=== PATIENT | male | born 1955 | race Hispanic/Latino ===

== ENCOUNTER 2017-07-22 08:10 | Outpatient (CLI) | payer MEDICARE ==
[2017-07-22] MEDS ORDERED: ISOVUE-370 76%-LOCM 1 ML ONE (13:10)
== END 2017-07-22 08:11 | disposition home or self-care (01) ==
LOC: BICCT 08:10
PROVIDERS: ATTEND Urology
DX: R31.29 Other microscopic hematuria (principal); N40.0 Benign prostatic hyperplasia without lower urinary tract symptoms
CPT/HCPCS: 74178

== ENCOUNTER 2018-02-03 10:55 | Emergency (ER) | payer MEDICARE ==
[2018-02-03] MEDS ORDERED: Ibuprofen 800 MG TAB ONE (11:25)
--- NOTE | 2018-02-03 12:51 | RAD ---
THREE VIEWS OF THE CLS: DATE: 02/03/2018. COMPARISON: None. HISTORY: Injury, trauma, pain. FINDINGS: Five lumbar-type vertebral bodies are present. Pedicles appear intact on frontal imaging. There is an anterior wedge compression fracture at the L1 level. There is associated anterior loss o f vertebral body height estimated at approximately 50%. There is scattered atherosclerotic calcifica tion of the abdominal aorta. There is multilevel lower lumbar spine facet hypertrophic change. IMPRESSION: Anterior wedge compression fracture of L1 with 50% loss of vertebral body height anteriorly. POS: [email or web address]
== END 2018-02-03 12:39 | disposition home or self-care (01) ==
LOC: ERS 10:55
DX: S32.010A Wedge compression fracture of first lumbar vertebra, initial encounter for closed fracture (principal); E11.9 Type 2 diabetes mellitus without complications; E78.5 Hyperlipidemia, unspecified; I10 Essential (primary) hypertension; F17.210 Nicotine dependence, cigarettes, uncomplicated; Z79.84 Long term (current) use of oral hypoglycemic drugs; W01.0XXA Fall on same level from slipping, tripping and stumbling without subsequent striking against object, initial encounter
CPT/HCPCS: 72100

== ENCOUNTER 2018-05-06 09:19 | Outpatient (CLI) | payer MEDICARE ==
--- NOTE | 2018-05-06 11:46 | BD ---
DEXA Bone Density Date: 05-06-18 History: Post-menopausal. Lumbar Spine: BMD (g/cm2) L1 1.014 T-Score: -0.4 C-score: 0.1 L2 0.902 T-Score: -1.7 C-score: 1.1 L3 0.949 T-Score: -1.4 C-score: 0.7 L4 1.061 T-Score: -0.3 C-score: 0.4 L1-L4 0.983 T-Score: 1.0 C-score: -0.3 Femoral Neck: 0.783 T-Score: -1.1 C-score: -0.5 Total Femur: 1.016 T-Score: -0.1 C-score: 0.1 Impression: Mild osteopenia of the lumbar spine and left femoral neck indicating two-fold increased risk for frac ture. POS: [email or web address]
== END 2018-05-06 09:20 | disposition home or self-care (01) ==
LOC: BICMAMMO 09:19
PROVIDERS: ATTEND Internal Medicine Rheumatology
DX: Z13.820 Encounter for screening for osteoporosis (principal); M85.89 Other specified disorders of bone density and structure, multiple sites
CPT/HCPCS: 77080